=== PATIENT | female | born 1990 | race Two or more races ===

== ENCOUNTER 2022-02-15 10:44 | Outpatient (CLI) | payer OTHER | END 2022-02-15 13:15 | disposition home or self-care (01) | LOC: PRENATAL 10:44 | PROVIDERS: ATTEND Obstetrics & Gynecology Maternal & Fetal Medicine | DX: O36.80X0 Pregnancy with inconclusive fetal viability, not applicable or unspecified (principal); Z36 Encounter for antenatal screening of mother; Z14.8 Genetic carrier of other disease; O24.319 Unspecified pre-existing diabetes mellitus in pregnancy, unspecified trimester; O10.019 Pre-existing essential hypertension complicating pregnancy, unspecified trimester; O99.019 Anemia complicating pregnancy, unspecified trimester; O34.219 Maternal care for unspecified type scar from previous cesarean delivery ==

== ENCOUNTER → 2022-05-14 | Emergency (ER) | payer OTHER ==
[~2022-05-14] VITALS: Ht 162.6 cm; Wt 75.7 kg
== END | disposition home or self-care (01) ==
LOC: ER 21:28
DX: J06.9 Acute upper respiratory infection, unspecified (principal); Z20.822 Contact with and (suspected) exposure to COVID-19; Z88.8 Allergy status to other drugs, medicaments and biological substances

== ENCOUNTER 2022-07-09 14:02 | Outpatient (CLI) | payer OTHER | END 2022-07-09 15:30 | disposition home or self-care (01) | LOC: PRENATAL 14:02 | PROVIDERS: ATTEND Obstetrics & Gynecology Maternal & Fetal Medicine | DX: O26.849 Uterine size-date discrepancy, unspecified trimester (principal); O36.8199 Decreased fetal movements, unspecified trimester, other fetus; Z3A.35 35 weeks gestation of pregnancy ==

== ENCOUNTER 2022-07-29 11:15 | Inpatient (IN) | payer OTHER ==
[~2022-07-29] VITALS: Ht 152.4 cm; Wt 3.2 kg
[2022-07-29] MEDS ORDERED: CHILDREN'S ASPI81 MG PO (13:40)
[2022-07-29] MEDS ORDERED: METFORMIN HCL1000 M2 PO (13:40)
[2022-07-29] MEDS ORDERED: LABETALOL HCL100 MG PO (13:40)
[2022-07-29] MEDS ORDERED: PRENATABS RX T1 EACH PO (13:40)
[2022-07-29] MEDS ORDERED: FOLIC ACID0.8 M1 PO (13:41)
[2022-08-03] MEDS ORDERED: IBUPROFEN800 MG PO (09:36)
== END 2022-08-03 11:30 | disposition home or self-care (01) | DRG 785 ==
LOC: OB/GYN 07-31 06:21 → O/R 07-31 06:21 → OB/GYN 07-31 07:00
PROVIDERS: ADMIT Obstetrics & Gynecology; ATTEND Obstetrics & Gynecology
PROC: 0UB70ZZ Excision of Bilateral Fallopian Tubes, Open Approach (ICD-10-PCS; 2022-07-31)
PROC: 4A1HXCZ Monitoring of Products of Conception, Cardiac Rate, External Approach (ICD-10-PCS; 2022-07-31)
PROC: 10D00Z1 Extraction of Products of Conception, Low, Open Approach (ICD-10-PCS; principal; 2022-07-31 07:00)
DX: O34.211 Maternal care for low transverse scar from previous cesarean delivery (principal); Z30.2 Encounter for sterilization; Z3A.38 38 weeks gestation of pregnancy; Z20.822 Contact with and (suspected) exposure to COVID-19; Z37.0 Single live birth